=== PATIENT | female | born 1945 | race Hispanic/Latino ===

== ENCOUNTER → 2019-10-12 | Outpatient (CLI) | payer MEDICARE ==
[~2019-10-12] MED LIST: IOHEXOL-350 50ML VIAL IV ONE
== END | disposition home or self-care (01) ==
LOC: RAH 10:35
PROVIDERS: ATTEND Internal Medicine Cardiovascular Disease
DX: A88.1 Epidemic vertigo (principal); R51 Headache
CPT/HCPCS: 70470; Q9967

== ENCOUNTER → 2022-09-26 | Outpatient (CLI) | payer MEDICARE | END | disposition home or self-care (01) | LOC: RAH 07:24 | PROVIDERS: ATTEND Internal Medicine Gastroenterology | DX: R68.81 Early satiety (principal); R10.13 Epigastric pain; R11.0 Nausea | CPT/HCPCS: 78264; A9541 ==

== ENCOUNTER → 2024-10-07 | Outpatient (CLI) | payer MEDICARE ==
[2024-10-07 15:30] LABS: CREATININE 0.9 mg/dL (0.5-1.0)
== END | disposition home or self-care (01) ==
LOC: LAB 14:36
PROVIDERS: ATTEND Internal Medicine Cardiovascular Disease
DX: I65.23 Occlusion and stenosis of bilateral carotid arteries (principal)
CPT/HCPCS: 36415; 82565; 84520